=== PATIENT | male | born 1980 | race Caucasian/White ===

== ENCOUNTER → 2016-09-01 | Outpatient (CLI) | payer OTHER ==
[~2016-09-01] MED LIST: IOHEXOL 300 MG/ML 75 ML VIAL. IV ONE
--- NOTE | 2016-09-01 15:08 | RAD ---
Indication chest pain. Contrast imaging through the chest was performed. 75 cc of Omnipaque 300 was administered intravenously. MIP images were generated and reviewed. The examination was targeted for the detection of pulmonary embolus. No prior imaging of the chest is available. Imaging through the upper abdomen shows no acute finding. Inferior vena cava is not seen in the upper abdomen. 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 A right-sided superior vena cava is not seen and the azygos system is prominent. 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 Note is additionally made that there is a common trunk off the arch of the aorta which contains the innominate artery and the left common carotid artery. The left vertebral artery originates off the arch of the aorta. There is no significant hilar or mediastinal adenopathy. The thoracic aorta appears unremarkable. The study is negative for pulmonary embolus. No acute parenchymal infiltrate in either lung is seen. There is no dominant soft tissue mass in either lung. There is some minimal pleural-parenchymal scarring at the left lung base. There is a tiny 2 mm nodule in the right upper lobe peripherally, image 66 series 5. Follow-up imaging lung the lines of the Fleischner criteria advised. IMPRESSION: No acute finding in the chest. Negative study for pulmonary embolus. Tiny pulmonary nodule in the right upper lobe. Follow-up imaging along the lines of the Fleischner criteria should be considered. Nodules detected incidentally at non-screening CT Nodule size (mm) less than or equal to 4 Low Risk patients- no follow-up needed High Risk patients- follow-up at 12 months and if no change, no further imaging needed. Nodule size > 4-6 mm Low risk patients- follow- up at 12 months and if no change, no further imaging needed High risk patients- initial follow-up CT at 6-12 months and then at 18-24 months if no change. Nodule Size > 6-8 mm Low risk patients- initial follow-up CT at 6-12 months and then at 18-24 months if no change. High risk patients- initial follow- up CT at 3-6 months and then at 9-12 months if no change, Nodule Size >8 mm Either low or high risk patients: Follow-up CT at around 3, 9 and 24 [address], PET, and/or biopsy Note: newly detected indeterminate nodule in person 35 years of age or older. Low risk patients- minimal or absent history of smoking and/or other known risk factors. High risk patients- history of smoking or of other known risk factors. PQRS Compliance Statement: One or more of the following individualized dose reduction techniques were utilized for this examination: 1. Automated exposure control 2. Adjustment of the mA and/or kV according to patient size 3. Use of iterative reconstruction technique
== END | disposition home or self-care (01) ==
LOC: CT 14:20 → EDBD 14:20
PROVIDERS: ATTEND Physician Assistant
DX: R91.1 Solitary pulmonary nodule (principal)
CPT/HCPCS: 71275; Q9967

== ENCOUNTER 2016-10-30 21:09 | Emergency (ER) | payer OTHER ==
[~2016-10-30] VITALS: Ht 177.8 cm; Wt 99.0 kg
[2016-10-30] MEDS ORDERED: IBUP800T19 PO (21:30)
[2016-10-30] MEDS ORDERED: FLUT9.9S NS (21:30)
[2016-10-30] MEDS ORDERED: CETI10TA22 PO (21:30)
[2016-10-30] MEDS ORDERED: NAPR500T3 PO (21:30)
[2016-10-30] MEDS ORDERED: MONT10TA9 PO (21:30)
--- NOTE | 2016-10-30 21:32 | PHYS DOC ---
Past History Additional Past Medical Histor: prior back injury with Physical therapy Past Surgical History: No Surgical History Smoking: Non-smoker Adult General Chief Complaint Chief Complaint: BACK PAIN - NO INJURY HPI HPI Patient is a 35 year old male who presents with low back pain and into the right buttock. He has had this before. This started earlier in the week. No known injury. Last travel was to [place] 2 weeks ago. No saddle anesthesia; no change in bowel or bladder. No weakness or numbness of the lower extremities. No fever. No blood in urine or dysuria. Review of Systems Review of Systems Constitutional: Denies fever or chills GI: Denies abdominal pain, nausea, vomiting, bloody stools or diarrhea : Denies dysuria or hematuria Musculoskeletal: low back pain; no joint pain Integument: Denies rash or skin lesions Neurologic: Denies headache, focal weakness or sensory changes Current Medications Current Medications Current Medications Medications (Trade) Dose Ordered Sig/Marci Start Time Stop Time Status Last Admin Dose Admin Ketorolac Tromethamine (Toradol) 60 mg 1X ONCE 10/30/16 22:00 10/30/16 22:01 DC 10/30/16 21:47 60 MG Tizanidine HCl (Zanaflex) 4 mg 1X ONCE 10/30/16 22:00 10/30/16 22:01 DC 10/30/16 21:47 4 MG Allergies Allergies Allergies Coded Allergies Type Severity Reaction Last Updated Verified No Known Drug Allergies 10/30/16 No Physical Exam Physical Exam Constitutional: Well developed, well nourished, no acute distress, non-toxic appearance. HENT: Normocephalic, atraumatic, bilateral external ears normal, oropharynx moist, no oral exudates, nose normal. Cardiovascular:Heart rate regular rhythm, no murmur Lungs & Thorax: Bilateral breath sounds clear to auscultation Abdomen: Bowel sounds normal, soft, no tenderness, no masses, no pulsatile masses. Skin: Warm, dry, no erythema, no rash. No lesions noted on back. Back: No midline tenderness, no CVA tenderness. Pain along right SI joint area. Extremities: No tenderness, no cyanosis, no clubbing, ROM intact, no edema. Neurologic: Alert and oriented X 3, normal motor function, normal sensory function, no focal deficits noted. Normal reflexes at knees 2+ and symmetrical. Psychologic: Affect normal, judgement normal, mood normal. Current Patient Data Vital Signs Vital Signs Date Time Temp Pulse Resp B/P (MAP) Pulse Ox O2 Delivery O2 Flow Rate FiO2 10/30/16 21:55 93 20 155/83 (107) 100 Room Air 10/30/16 21:31 98.3 Course & Med Decision Making Course & Med Decision Making Patient with NO evidence of cauda equina syndrome. No motor weakness noted. His blood pressure was elevated and recheck was improved. He was informed of need for follow up for BP screening. He has an appointment on Wednesday. Given back pain precautions. Rx: naprosyn and zanaflex Toradol shot here and zanaflex (he has a ride) Dragon Disclaimer Dragon Disclaimer This chart was dictated in whole or in part using Voice Recognition software in a busy, high-work load, and often noisy Emergency Department environment. It may contain unintended and wholly unrecognized errors or omissions. Departure Departure: Impression: Primary Impression: Low back pain Additional Impressions: Sciatic leg pain Elevated blood pressure reading Disposition: HOME, SELF-CARE Condition: GOOD Referrals: NAME,REGULO LOERA (PCP) Patient Instructions: Back Exercises, [id number], Back Pain, Adult, Sciatica Scripts Tizanidine Hcl (ZANAFLEX) 4 Mg Capsule 4 MG PO PRN Q8HRS Y for MUSCLE SPASMS for 28 Days, CAP Prov: ROJAS DE MD 10/30/16 Naproxen Sodium (NAPROXEN SODIUM) 550 Mg Tablet 550 MG PO BID for 14 Days, #28 TAB Prov: ROJAS DE MD 10/30/16 Problem Qualifiers ROJAS DE MD Oct 30, 2016 21:32
[2016-10-30] MEDS ORDERED: TIZA4CAP3 PO (21:35)
[2016-10-30] MEDS ORDERED: NAPR-677 PO (21:35)
[2016-10-30 21:55] VITALS: BP 155/83
[2016-10-30] MEDS ORDERED: tiZANidine 4 MG TABLET. PO ONE (22:00)
[2016-10-30] MEDS ORDERED: KETOROLAC 60 MG/2 ML VIAL. IM ONE (22:00)
== END 2016-10-30 21:58 | disposition home or self-care (01) ==
LOC: ER 21:09
DX: M54.5 Low back pain (principal); M54.31 Sciatica, right side; M79.604 Pain in right leg; R03.0 Elevated blood-pressure reading, without diagnosis of hypertension
CPT/HCPCS: 96372; 99283; J1885

== ENCOUNTER 2017-02-28 20:08 | Emergency (ER) | payer OTHER ==
[~2017-02-28] VITALS: Ht 177.8 cm; Wt 99.0 kg
[2017-02-28 20:08] VITALS: BP 137/85
[~2017-02-28 20:08] MED LIST changes: +CETI10TA22 PO; +FLUT9.9S NS; +IBUP800T19 PO; -IOHEXOL 300 MG/ML 75 ML VIAL. IV ONE; +MONT10TA9 PO; +NAPR-677 PO; +NAPR500T4 PO; +TIZA4CAP3 PO
[2017-02-28] MEDS ORDERED: CONTRAST GIVEN MC PRN (22:00)
[2017-02-28] MEDS: IOHEXOL 300 MG/ML 75 ML VIAL. IV ONE (22:08)
--- NOTE | 2017-02-28 22:18 | RAD ---
Indication: Left orbital swelling. Eye completely swollen shut. Sinus related symptoms for 2 weeks. Technique: Axial images and coronal and sagittal reformatted images are provided. 75 mL of intravenous Omnipaque 300 was administered without complication. No comparison is available. One or more of the following individualized dose reduction techniques were utilized for this examination: 1. Automated exposure control 2. Adjustment of the mA and/or kV according to patient size 3. Use of iterative reconstruction technique Findings: There is mild left preseptal soft tissue swelling. There is no orbital involvement. There is no abscess. Stranding/swelling extends superior to the orbit. Frontal sinuses are clear. There is mild ethmoid mucosal thickening. There is mild maxillary mucosal thickening. There is no air-fluid level. Sphenoid sinuses are clear. Mastoid air cells are clear. There is no gross bone destruction. There is no fracture. IMPRESSION: Left preseptal cellulitis. No evidence of an orbital cellulitis. Negative for abscess. Electronically signed by: Jameson Pimentel MD (02/28/2017 10:14 PM) [id number]
[2017-02-28] MEDS ORDERED: ERYT1OIN6 OP (22:38)
[2017-02-28] MEDS ORDERED: AMOX1TAB61 PO (22:38)
--- NOTE | 2017-02-28 22:38 | PHYS DOC ---
Past History Past Medical History: No Pertinent History, Other Additional Past Medical Histor: prior back injury with Physical therapy Past Surgical History: No Surgical History Smoking: Non-smoker Alcohol Use: None Drug Use: None Adult General Chief Complaint Chief Complaint: EYE PROBLEMS HPI HPI Patient is a 36-year-old male who presents ambulatory to the ED with the complaint of left eye swelling, pain, and discharge. The patient has had some sinus congestion and a sore throat for a couple of days. This evening he began to have purulent discharge from his left eye and swelling of the left eyelid. His vision seems cloudy. His left eye is painful. He denies fever or chills. He is in good general health. He denies injury to the eye. He's never had this before. Patient denies allergy Review of Systems Review of Systems Constitutional: Denies fever or chills [] Eyes: As in history of present illness HENT: As in history of present illness Respiratory: Denies cough or shortness of breath [] Integument: Denies rash or skin lesions [] Neurologic: Denies headache All other systems were reviewed and found to be within normal limits, except as documented in this note. Current Medications Current Medications Current Medications Medications (Trade) Dose Ordered Sig/Marci Start Time Stop Time Status Last Admin Dose Admin Amoxicillin/ Clavulanate Potassium (Augmentin 875/ 125mg) 1 tab 1X ONCE 02/28/17 22:30 02/28/17 22:31 DC Erythromycin (Romycin) 0.25 inch 1X ONCE 02/28/17 22:30 02/28/17 22:31 UNV Info (Do NOT chart on this entry -- for MONITORING) 1 each PRN DAILY PRN 02/28/17 22:00 03/02/17 21:59 Iohexol (Omnipaque 300 Mg/ml) 75 ml 1X ONCE 02/28/17 22:00 02/28/17 22:01 DC 02/28/17 22:08 75 ML Allergies Allergies Allergies Coded Allergies Type Severity Reaction Last Updated Verified No Known Drug Allergies 02/28/17 No Physical Exam Physical Exam Constitutional: Well developed, well nourished, no acute distress, non-toxic appearance. Afebrile. Alert. Mentating normally. HEENT: Normocephalic, atraumatic, right eye appears normal. Left eye has moderate swelling of the upper eyelid. There is moderate diffuse conjunctival injection. There is purulent discharge from the eye. The cornea appears clear. There is some discomfort with pupillary testing but not significant. EOMs are intact without significant discomfort. Left TM is red and injected. Throat has generalized erythema. Neck: Normal range of motion, no tenderness, supple, no stridor. [] Skin: Warm, dry, no erythema, no rash. [] Extremities: No tenderness, no cyanosis, no clubbing, ROM intact, no edema. [] Neurologic: Alert and oriented X 3, normal motor function,no focal deficits noted. [] Current Patient Data Vital Signs Vital Signs Date Time Temp Pulse Resp B/P (MAP) Pulse Ox O2 Delivery O2 Flow Rate FiO2 02/28/17 20:08 98.4 91 18 98 Room Air EKG EKG [] Radiology/Procedures Radiology/Procedures CT scan of the orbits with contrast read by the radiologist. No orbital cellulitis, only preseptal.[] Course & Med Decision Making Course & Med Decision Making Pertinent Labs and Imaging studies reviewed. (See chart for details) 36-year-old male presents with acute onset of left eyelid swelling and conjunctivitis with purulent discharge. CT scan was done to rule out orbital cellulitis. The patient is stable and nontoxic. We will start him on antibiotics to cover for potential pathogens as well as erythromycin ophthalmic. See instructions for plan. [] Dragon Disclaimer Dragon Disclaimer This electronic medical record was generated, in whole or in part, using a voice recognition dictation system. Departure Departure: Impression: Primary Impression: Purulent conjunctivitis of left eye Disposition: 01 HOME, SELF-CARE Condition: STABLE Referrals: ZULMA VINSON (PCP) Patient Instructions: Bacterial Conjunctivitis, [id number] Additional Instructions: Good hand washing with soap and water to avoid spreading this. You had your first dose of antibiotics here in the emergency department. Get the prescription filled early tomorrow so you are taking them about every 12 hours. Use antibiotic eye ointment 4 times a day as instructed. Good handwashing after using. Warm compresses as needed for comfort. Rest at home, plenty of fluids, Tylenol or ibuprofen for discomfort and fever as needed. Scripts Erythromycin Base (Erythromycin) 1 Gm Oint...g. 1 GM OP QID for conjunctivitis for 7 Days, #1 MISC Prov: CHRISTINA MONTESINOS MD 02/28/17 Amoxicillin/Potassium Clav (AUGMENTIN 875-125 TABLET) 1 Each Tablet 1 TAB PO BID, #20 TAB Prov: CHRISTINA MONTESINOS MD 02/28/17 CHRISTINA MONTESINOS MD Feb 28, 2017 22:38
[2017-02-28] MEDS: ERYTHROMYCIN 0.5% OPHTH OINTMENT 1GM TUBE. OS ONE (22:45)
[2017-02-28] MEDS: AMOXICILLIN/K CLAV 875/125MG TABLET. PO ONE (22:45)
== END 2017-02-28 22:53 | disposition home or self-care (01) ==
LOC: ER 20:08
DX: H10.89 Other conjunctivitis (principal); R09.81 Nasal congestion; J02.9 Acute pharyngitis, unspecified
CPT/HCPCS: 70481; 99284; Q9967